=== PATIENT | female | born 1985 | race African-American/Black ===

== ENCOUNTER → 2021-08-03 | Outpatient (CLI) | payer MEDICAID ==
--- NOTE | 2021-08-03 12:40 | Diagnostic Imaging Report ---
INDICATION: Scoliosis. TIME OF EXAM: 11:37 AM. FINDINGS: There is S-shaped thoracolumbar scoliotic curvature, convex to the right in the thoracic portion and convex to the left in the lumbar portion. The thoracic curvature measured from the superior endplate of T6 to the inferior endplate of T11 measures 49 degrees. The lumbar curvature measured from approximately the superior endplate of T12 to the inferior endplate of T4 is measured at 35 degrees. No definite vertebral body anomaly is identified. IMPRESSION: Thoracolumbar scoliosis, as described. Dictated by: Dictated on workstation # [id number]
== END ==
LOC: RAD 11:16
PROVIDERS: ATTEND Nurse Practitioner Family
DX: M41.85 Other forms of scoliosis, thoracolumbar region (principal)
CPT/HCPCS: 72081